=== PATIENT | male | born 1980 | race African-American/Black ===

== ENCOUNTER 2017-03-14 16:45 | Emergency (ER) | payer MEDICAID ==
[~2017-03-14] VITALS: Ht 170.2 cm; Wt 70.0 kg
[~2017-03-14 16:45] MED LIST: ALEN70TA13 PO; ASCO500C6 PO; BACL-141 PO; COLAZAL; DIPH25CA83 PO; DOCU-150 PO; DULO60CA44 PO; DUONEB; ERGO500043 PO; FOLI-43 PO; GABA-531 PO; METF500T4 PO; PROP80CA2 PO; TEMA15CA46 PO
[2017-03-14 17:46] LABS: BASOPHILS % 0.4 % (0.0-2.0); EOSINOPHILS % 1.2 % (0.0-5.0); HEMOGLOBIN. 8.6 g/dL (14.0-18.0); LYMPHOCYTES % 10.1 % (20.0-50.0); MEAN CORPUSCULAR HEMOGLOBIN 27.7 pg (28.0-32.0); MEAN CORPUSCULAR HGB CONC 31.9 g/dL (31.0-37.0); MEAN PLATELET VOLUME 7.9 fl (7.4-10.4); MONOCYTES % 7.6 % (2.0-8.0); NEUTROPHILS % 80.7 % (40.0-76.0); PLATELET 446 x1000/uL (130-400); RED BLOOD CELL COUNT 3.11 mill/uL (4.7-6.1); RED CELL DISTRIBUTION WIDTH 14.5 % (11.6-14.6); WHITE BLOOD COUNT 14.9 x1000/uL (4.5-11.0)
[2017-03-14 17:50] LABS: CHLORIDE 106 mEq/L (98-107)
[2017-03-14 17:51] LABS: INDEX HEMOLYSI 1 (1-3); INDEX ICTERIC 1 (1-4); INDEX LIPEMIC 1 (1-3)
[2017-03-14 17:56] LABS: ALBUMIN 2.5 g/dL (3.4-5.0); ANION GAP 10; CALCIUM 8.6 mg/dL (8.5-10.1); CARBON DIOXIDE 27 mEq/L (21-32); UREA NITROGEN BLOOD 10 mg/dL (7-21)
[2017-03-14 18:00] LABS: ALANINE AMINOTRANSFERASE 12 IU/L (13-61); eGFR 43 mL/min (>60)
[2017-03-14] MEDS ORDERED: SODIUM CHLORIDE 0.9% 1,000 ML IV ONE (19:45)
[2017-03-15 12:58] VITALS: BP 140/76
== END 2017-03-15 13:01 | disposition home or self-care (01) ==
LOC: ER 16:46
DX: E11.649 Type 2 diabetes mellitus with hypoglycemia without coma (principal); T38.3X5A Adverse effect of insulin and oral hypoglycemic [antidiabetic] drugs, initial encounter; Z79.899 Other long term (current) drug therapy; I12.9 Hypertensive chronic kidney disease with stage 1 through stage 4 chronic kidney disease, or unspecified chronic kidney disease; N18.9 Chronic kidney disease, unspecified; E11.29 Type 2 diabetes mellitus with other diabetic kidney complication
CPT/HCPCS: 36415; 80053; 82962; 85025; 96360; 96361; 99285; Z7610; J7030

== ENCOUNTER 2018-02-12 06:32 | Inpatient (IN) | payer MEDICAID ==
[~2018-02-12] VITALS: Ht 167.6 cm; Wt 64.4 kg
[~2018-02-12 06:32] MED LIST changes: -ALEN70TA13 PO; +ALEN70TA46 PO; +ERGO500013 PO; -ERGO500043 PO; -TEMA15CA46 PO; +TEMA15CA5 PO
[2018-02-12] MEDS ORDERED: DEXTROSE 50% WATER 50ML SYRINGE IV ONE ×2 (06:54→07:00)
[2018-02-12] MEDS ORDERED: GLUCAGON,HUMAN RECOMBINANT 1MG/VIAL IM ONE (07:00)
[2018-02-12] MEDS ORDERED: SODIUM CHLORIDE 0.9% 1000ML BAG (SEPSIS BOLUS) IV ONE (07:00)
[2018-02-12 07:28] LABS: BASOPHILS % 0.6 % (0.0-2.0); EOSINOPHILS % 0.1 % (0.0-5.0); HEMATOCRIT. 32.5 % (42.0-52.0); HEMOGLOBIN. 10.5 g/dL (14.0-18.0); LYMPHOCYTES % 15.6 % (20.0-50.0); MEAN CORPUSCULAR HEMOGLOBIN 31.5 pg (28.0-32.0); MEAN CORPUSCULAR VOLUME 97.6 fL (80.0-94.0); MONOCYTES % 2.9 % (2.0-8.0); NEUTROPHILS % 80.8 % (40.0-76.0); PLATELET 268 x1000/uL (130-400); RED BLOOD CELL COUNT 3.33 mill/uL (4.7-6.1); RED CELL DISTRIBUTION WIDTH 14.6 % (11.6-14.6)
[2018-02-12 07:37] LABS: ETHANOL BLOOD 146 mg/dL
[2018-02-12 07:40] LABS: PARTIAL THROMBOPLASTIN TIME 25.7 sec (23.4-31.0); PROTHROMBIN TIME 10.7 sec (9.4-11.6)
[2018-02-12 07:51] LABS: CHLORIDE 104 mEq/L (98-107)
[2018-02-12] MEDS ORDERED: LEVOFLOXACIN 750MG PREMIX 150 ML IV ONE (08:45)
[2018-02-12] MEDS ORDERED: OSELTAMIVIR 75MG CAPSULE PO ONE (08:45)
[2018-02-12] MEDS ORDERED: LIDOCAINE HCL/PF 1% 10 MG/ML 5ML VIAL ONE (14:21)
[2018-02-12] MEDS ORDERED: SODIUM BICARBONATE 4% (2.4MEQ) 5ML VIAL IV ONE (14:22)
[2018-02-12 21:30] VITALS: BP 141/102
[2018-02-12 22:00] VITALS: BP 141/102
[2018-02-12] MEDS ORDERED: DOCUSATE SODIUM 250MG CAPSULE PO PRN (23:15)
[2018-02-12] MEDS ORDERED: ONDANSETRON HCL 4MG/2ML VIAL IV PRN (23:15)
[2018-02-12] MEDS ORDERED: ACETAMINOPHEN 325MG TABLET PO PRN (23:15)
[2018-02-12] MEDS ORDERED: DEXTROSE 50% WATER 50ML SYRINGE IV PRN (23:45)
[2018-02-13] VITALS (12 sets, daily range): BP systolic 112–135; BP diastolic 58–87
[2018-02-13] MEDS: TEMAZEPAM 15MG CAPSULE PO PRN ×2 (00:10→21:05)
[2018-02-13] MEDS: TRAMADOL HCL/ACETAMINOPHEN 37.5/325MG TABLET PO PRN ×3 (00:39→21:06)
[2018-02-13] MEDS ORDERED: SODIUM CHLORIDE 0.9% INJ 3ML FLUSH IVF ONE (06:00)
[2018-02-13] MEDS: GABAPENTIN 300MG CAPSULE PO SCH ×3 (06:27→21:04)
[2018-02-13] MEDS: BACLOFEN 10MG TABLET PO SCH ×3 (06:27→21:04)
[2018-02-13 07:14] LABS: CLARITY URINE CLEAR (CLEAR); COLOR URINE YELLOW (YELLOW); KETONES URINE TRACE (NEGATIVE); LEUKOCYTE ESTERASE URINE NEGATIVE (NEGATIVE); NITRITE URINE NEGATIVE (NEGATIVE); OCCULT BLOOD URINE NEGATIVE (NEGATIVE); PH URINE 5.5 (4.5-8.0); PROTEIN URINE NEGATIVE (NEGATIVE); SPECIFIC GRAVITY URINE 1.023 (1.005-1.030); UROBILINOGEN URINE 0.2 E.U./dL (0.2-1.0)
[2018-02-13] MEDS: BLOOD SUGAR DIAGNOSTIC STRIP TEST SCH ×4 (07:30→21:04)
[2018-02-13] MEDS ORDERED: INSULIN LISPRO 100 UNITS/ML SUBCUT SCH (07:30)
[2018-02-13] MEDS ORDERED: METFORMIN HCL 500MG TABLET PO SCH (08:00)
[2018-02-13 08:07] LABS: *AMPHETAMINES SCREEN URINE NEGATIVE (NEGATIVE)
[2018-02-13 08:08] LABS: *BARBITURATES SCREEN URINE NEGATIVE (NEGATIVE); *BENZODIAZEPINES SCREEN URINE NEGATIVE (NEGATIVE); *COCAINE SCREEN URINE NEGATIVE (NEGATIVE); METHADONE URINE SCREEN NEGATIVE (NEGATIVE); OPIATES URINE SCREEN NEGATIVE (NEGATIVE); PHENCYCLIDINE URINE SCREEN NEGATIVE (NEGATIVE)
[2018-02-13 08:09] LABS: CANNABINOID URINE SCREEN PRESUMTIVE POSITIVE (NEGATIVE)
[2018-02-13 08:48] LABS: BASOPHILS % 0.4 % (0.0-2.0); EOSINOPHILS % 0.9 % (0.0-5.0); HEMATOCRIT. 28.5 % (42.0-52.0); HEMOGLOBIN. 9.5 g/dL (14.0-18.0); LYMPHOCYTES % 23.9 % (20.0-50.0); MEAN CORPUSCULAR HEMOGLOBIN 31.4 pg (28.0-32.0); MEAN CORPUSCULAR VOLUME 94.7 fL (80.0-94.0); MEAN PLATELET VOLUME 9.6 fl (7.4-10.4); NEUTROPHILS % 61.8 % (40.0-76.0); PLATELET 197 x1000/uL (130-400); RED BLOOD CELL COUNT 3.01 mill/uL (4.7-6.1); RED CELL DISTRIBUTION WIDTH 14.7 % (11.6-14.6)
[2018-02-13] MEDS ORDERED: NON FORMULARY PATIENT HOME MED EA PO SCH (09:00)
[2018-02-13 09:23] LABS: CHLORIDE 100 mEq/L (98-107)
[2018-02-13] MEDS: PROPRANOLOL HCL 20MG TABLET PO SCH ×2 (09:27→20:51)
[2018-02-13] MEDS: ASCORBIC ACID 500 MG TABLET PO SCH (09:28)
[2018-02-13] MEDS: DULOXETINE HCL 60MG DR CAPSULE PO SCH (09:28)
[2018-02-13] MEDS: FOLIC ACID 1MG TABLET PO SCH (09:28)
[2018-02-13] MEDS: INSULIN LISPRO (LOW DOSE) 100 UNITS/ML SUBCUT SCH ×3 (09:29→18:31)
[2018-02-13 09:30] LABS: LDL CHOLESTEROL 48 mg/dL (5-100)
[2018-02-13 09:31] LABS: HDL CHOLESTEROL 68 mg/dL (40-59); TOTAL IRON BINDING CAPACITY 310 ug/dL (250-450)
[2018-02-13 09:34] LABS: T4 FREE 0.83 ng/dL (0.76-1.46)
[2018-02-13] MEDS: DIPHENHYDRAMINE 50MG/ML VIAL IV PRN ×4 (12:13→21:40)
[2018-02-13] MEDS ORDERED: METHYL SALICYLATE/MENTHOL CREAM 85GM TOP PRN (23:00)
[2018-02-14] VITALS (12 sets, daily range): BP systolic 109–156; BP diastolic 77–114
[2018-02-14] MEDS: TRAMADOL HCL/ACETAMINOPHEN 37.5/325MG TABLET PO PRN ×4 (02:35→21:05)
[2018-02-14] MEDS: DIPHENHYDRAMINE 50MG/ML VIAL IV PRN ×4 (02:43→21:06)
[2018-02-14] MEDS: BACLOFEN 10MG TABLET PO SCH ×3 (06:02→21:01)
[2018-02-14] MEDS: GABAPENTIN 300MG CAPSULE PO SCH ×3 (06:03→21:01)
[2018-02-14] MEDS: BLOOD SUGAR DIAGNOSTIC STRIP TEST SCH ×4 (06:53→20:56)
[2018-02-14] MEDS: INSULIN LISPRO (LOW DOSE) 100 UNITS/ML SUBCUT SCH ×3 (07:20→17:54)
[2018-02-14] MEDS: PROPRANOLOL HCL 20MG TABLET PO SCH ×2 (08:59→21:01)
[2018-02-14] MEDS: ASCORBIC ACID 500 MG TABLET PO SCH (09:00)
[2018-02-14] MEDS: DULOXETINE HCL 60MG DR CAPSULE PO SCH (09:00)
[2018-02-14] MEDS: FOLIC ACID 1MG TABLET PO SCH (09:00)
[2018-02-14] MEDS: LINAGLIPTIN 5MG TABLET PO SCH (12:43)
[2018-02-14 16:43] LABS: BASOPHILS % 0.5 % (0.0-2.0); EOSINOPHILS % 2.9 % (0.0-5.0); HEMATOCRIT. 37.9 % (42.0-52.0); HEMOGLOBIN. 12.4 g/dL (14.0-18.0); LYMPHOCYTES % 28.3 % (20.0-50.0); MEAN CORPUSCULAR HEMOGLOBIN 31.1 pg (28.0-32.0); MEAN PLATELET VOLUME 9.6 fl (7.4-10.4); MONOCYTES % 9.1 % (2.0-8.0); NEUTROPHILS % 59.2 % (40.0-76.0); PLATELET 234 x1000/uL (130-400); RED BLOOD CELL COUNT 3.99 mill/uL (4.7-6.1); RED CELL DISTRIBUTION WIDTH 14.8 % (11.6-14.6)
[2018-02-14 16:51] LABS: CHLORIDE 99 mEq/L (98-107)
[2018-02-14] MEDS: TEMAZEPAM 15MG CAPSULE PO PRN (21:04)
[2018-02-15] VITALS (14 sets, daily range): BP systolic 114–150; BP diastolic 62–106
[2018-02-15] MEDS: DIPHENHYDRAMINE 50MG/ML VIAL IV PRN ×4 (04:59→21:51)
[2018-02-15] MEDS: BACLOFEN 10MG TABLET PO SCH ×3 (05:04→21:44)
[2018-02-15] MEDS: GABAPENTIN 300MG CAPSULE PO SCH ×3 (05:04→21:44)
[2018-02-15 06:51] LABS: BASOPHILS % 0.7 % (0.0-2.0); EOSINOPHILS % 2.8 % (0.0-5.0); HEMATOCRIT. 35.4 % (42.0-52.0); HEMOGLOBIN. 11.7 g/dL (14.0-18.0); LYMPHOCYTES % 36.7 % (20.0-50.0); MEAN CORPUSCULAR HEMOGLOBIN 31.5 pg (28.0-32.0); MEAN CORPUSCULAR VOLUME 95.3 fL (80.0-94.0); MEAN PLATELET VOLUME 9.8 fl (7.4-10.4); MONOCYTES % 8.8 % (2.0-8.0); PLATELET 205 x1000/uL (130-400); RED BLOOD CELL COUNT 3.72 mill/uL (4.7-6.1); RED CELL DISTRIBUTION WIDTH 14.7 % (11.6-14.6)
[2018-02-15] MEDS: BLOOD SUGAR DIAGNOSTIC STRIP TEST SCH ×4 (07:30→21:57)
[2018-02-15 08:40] LABS: CHLORIDE 97 mEq/L (98-107)
[2018-02-15] MEDS: INSULIN LISPRO (LOW DOSE) 100 UNITS/ML SUBCUT SCH ×3 (09:10→18:21)
[2018-02-15] MEDS: DULOXETINE HCL 60MG DR CAPSULE PO SCH (09:17)
[2018-02-15] MEDS: FOLIC ACID 1MG TABLET PO SCH (09:17)
[2018-02-15] MEDS: PROPRANOLOL HCL 20MG TABLET PO SCH ×2 (09:18→21:45)
[2018-02-15] MEDS: ASCORBIC ACID 500 MG TABLET PO SCH (09:19)
[2018-02-15] MEDS: LINAGLIPTIN 5MG TABLET PO SCH (09:19)
[2018-02-15] MEDS: TRAMADOL HCL/ACETAMINOPHEN 37.5/325MG TABLET PO PRN ×2 (09:25→21:50)
[2018-02-15] MEDS: TEMAZEPAM 15MG CAPSULE PO PRN (21:47)
[2018-02-16] VITALS (12 sets, daily range): BP systolic 107–136; BP diastolic 58–97
[2018-02-16] MEDS: BACLOFEN 10MG TABLET PO SCH ×3 (05:41→21:28)
[2018-02-16] MEDS: DIPHENHYDRAMINE 50MG/ML VIAL IV PRN ×3 (05:41→21:35)
[2018-02-16] MEDS: GABAPENTIN 300MG CAPSULE PO SCH ×3 (05:41→21:28)
[2018-02-16] MEDS: ASCORBIC ACID 500 MG TABLET PO SCH (08:04)
[2018-02-16] MEDS: BLOOD SUGAR DIAGNOSTIC STRIP TEST SCH ×4 (08:04→21:38)
[2018-02-16] MEDS: DULOXETINE HCL 60MG DR CAPSULE PO SCH (08:04)
[2018-02-16] MEDS: LINAGLIPTIN 5MG TABLET PO SCH (08:07)
[2018-02-16] MEDS: PROPRANOLOL HCL 20MG TABLET PO SCH ×2 (08:07→21:28)
[2018-02-16] MEDS: FOLIC ACID 1MG TABLET PO SCH (08:07)
[2018-02-16] MEDS: INSULIN LISPRO (LOW DOSE) 100 UNITS/ML SUBCUT SCH ×3 (08:08→18:22)
[2018-02-16] MEDS: TRAMADOL HCL/ACETAMINOPHEN 37.5/325MG TABLET PO PRN ×2 (08:21→21:34)
[2018-02-16] MEDS: TEMAZEPAM 15MG CAPSULE PO PRN (21:29)
[2018-02-16] MEDS: INSULIN GLARGINE UD 100 UNITS/ML SYR SUBCUT SCH (21:42)
[2018-02-17] VITALS (12 sets, daily range): BP systolic 107–133; BP diastolic 69–95
[2018-02-17] MEDS: DIPHENHYDRAMINE 50MG/ML VIAL IV PRN ×4 (04:33→22:01)
[2018-02-17] MEDS: BACLOFEN 10MG TABLET PO SCH ×3 (05:00→21:00)
[2018-02-17] MEDS: GABAPENTIN 300MG CAPSULE PO SCH ×3 (05:00→20:58)
[2018-02-17 07:29] LABS: BASOPHILS % 0.6 % (0.0-2.0); EOSINOPHILS % 2.3 % (0.0-5.0); HEMATOCRIT. 30.2 % (42.0-52.0); HEMOGLOBIN. 9.9 g/dL (14.0-18.0); LYMPHOCYTES % 34.8 % (20.0-50.0); MEAN CORPUSCULAR HEMOGLOBIN 31.2 pg (28.0-32.0); MEAN CORPUSCULAR VOLUME 95.4 fL (80.0-94.0); MEAN PLATELET VOLUME 9.7 fl (7.4-10.4); MONOCYTES % 10.5 % (2.0-8.0); NEUTROPHILS % 51.8 % (40.0-76.0); PLATELET 176 x1000/uL (130-400); RED BLOOD CELL COUNT 3.17 mill/uL (4.7-6.1); RED CELL DISTRIBUTION WIDTH 14.5 % (11.6-14.6)
[2018-02-17 07:50] LABS: CHLORIDE 100 mEq/L (98-107)
[2018-02-17] MEDS: BLOOD SUGAR DIAGNOSTIC STRIP TEST SCH ×4 (08:10→21:00)
[2018-02-17] MEDS: PROPRANOLOL HCL 20MG TABLET PO SCH ×2 (08:18→20:58)
[2018-02-17] MEDS: ASCORBIC ACID 500 MG TABLET PO SCH (08:18)
[2018-02-17] MEDS: FOLIC ACID 1MG TABLET PO SCH (08:18)
[2018-02-17] MEDS: DULOXETINE HCL 60MG DR CAPSULE PO SCH (08:18)
[2018-02-17] MEDS: INSULIN LISPRO (LOW DOSE) 100 UNITS/ML SUBCUT SCH ×3 (08:19→18:33)
[2018-02-17] MEDS: TRAMADOL HCL/ACETAMINOPHEN 37.5/325MG TABLET PO PRN ×2 (13:00→22:52)
[2018-02-17 14:33] LABS: TOTAL IRON BINDING CAPACITY 323 ug/dL (250-450)
[2018-02-17] MEDS ORDERED: INSULIN GLARGINE UD 100 UNITS/ML SYR SUBCUT SCH (22:00)
[2018-02-17] MEDS: TEMAZEPAM 15MG CAPSULE PO PRN (22:01)
[2018-02-17] MEDS: INSULIN GLARGINE UD 100 UNITS/ML SYR SUBCUT SCH (22:04)
[2018-02-18] VITALS (9 sets, daily range): BP systolic 108–144; BP diastolic 63–87
[2018-02-18] MEDS: GABAPENTIN 300MG CAPSULE PO SCH ×2 (04:36→13:15)
[2018-02-18] MEDS: DIPHENHYDRAMINE 50MG/ML VIAL IV PRN ×2 (04:36→11:39)
[2018-02-18] MEDS: BACLOFEN 10MG TABLET PO SCH ×2 (04:36→13:15)
[2018-02-18 05:56] LABS: BASOPHILS % 0.4 % (0.0-2.0); EOSINOPHILS % 1.9 % (0.0-5.0); HEMATOCRIT. 30.1 % (42.0-52.0); HEMOGLOBIN. 9.8 g/dL (14.0-18.0); LYMPHOCYTES % 35.6 % (20.0-50.0); MEAN CORPUSCULAR HEMOGLOBIN 31.4 pg (28.0-32.0); MEAN CORPUSCULAR VOLUME 96.3 fL (80.0-94.0); MONOCYTES % 10.7 % (2.0-8.0); NEUTROPHILS % 51.4 % (40.0-76.0); PLATELET 163 x1000/uL (130-400); RED BLOOD CELL COUNT 3.13 mill/uL (4.7-6.1); RED CELL DISTRIBUTION WIDTH 14.4 % (11.6-14.6)
[2018-02-18 06:16] LABS: CHLORIDE 100 mEq/L (98-107)
[2018-02-18] MEDS: BLOOD SUGAR DIAGNOSTIC STRIP TEST SCH ×2 (07:30→11:42)
[2018-02-18 09:06] LABS: FOLICLE STIMULATING HORMONE 2.4 mIU/mL (1.5-12.4); LUTEINIZING HORMONE 8.9 mIU/mL (1.7-8.6); PROLACTIN 10.5 ng/mL (4.0-15.2)
[2018-02-18] MEDS: DULOXETINE HCL 60MG DR CAPSULE PO SCH (09:25)
[2018-02-18] MEDS: ASCORBIC ACID 500 MG TABLET PO SCH (09:25)
[2018-02-18] MEDS: FOLIC ACID 1MG TABLET PO SCH (09:25)
[2018-02-18] MEDS: INSULIN LISPRO (LOW DOSE) 100 UNITS/ML SUBCUT SCH ×2 (09:27→11:42)
[2018-02-18] MEDS: PROPRANOLOL HCL 20MG TABLET PO SCH (09:37)
[2018-02-18 13:08] LABS: *CREATININE RANDOM URINE 84.3 mg/dL (Not Estab.); MICROALBUMIN RANDOM URINE 55.7 ug/mL (Not Estab.)
[2018-02-19 13:09] LABS: TESTOSTERONE FREE 10.7 pg/mL (8.7-25.1)
== END 2018-02-18 20:30 | DRG 349 ==
LOC: ER 06:32 → 5EST 09:45 → EDBEDREQSVC 12:04 → ENRESERV 18:11 → 5EST 02-13 07:48
PROVIDERS: ADMIT Internal Medicine; ATTEND Internal Medicine
PROC: B548ZZA Ultrasonography of Superior Vena Cava, Guidance (ICD-10-PCS; principal; 2018-02-12)
PROC: 02HV33Z Insertion of Infusion Device into Superior Vena Cava, Percutaneous Approach (ICD-10-PCS; 2018-02-12)
PROC: B5181ZA Fluoroscopy of Superior Vena Cava using Low Osmolar Contrast, Guidance (ICD-10-PCS; 2018-02-12)
DX: T87.89 Other complications of amputation stump (principal); R65.21 Severe sepsis with septic shock; A41.9 Sepsis, unspecified organism; N17.9 Acute kidney failure, unspecified; E10.22 Type 1 diabetes mellitus with diabetic chronic kidney disease; E10.42 Type 1 diabetes mellitus with diabetic polyneuropathy; K86.1 Other chronic pancreatitis; M86.9 Osteomyelitis, unspecified; I12.9 Hypertensive chronic kidney disease with stage 1 through stage 4 chronic kidney disease, or unspecified chronic kidney disease; D50.9 Iron deficiency anemia, unspecified; F19.90 Other psychoactive substance use, unspecified, uncomplicated; D64.9 Anemia, unspecified; Y83.8 Other surgical procedures as the cause of abnormal reaction of the patient, or of later complication, without mention of misadventure at the time of the procedure; E07.81 Sick-euthyroid syndrome; N18.9 Chronic kidney disease, unspecified; E10.649 Type 1 diabetes mellitus with hypoglycemia without coma; E10.65 Type 1 diabetes mellitus with hyperglycemia; E10.69 Type 1 diabetes mellitus with other specified complication; N39.0 Urinary tract infection, site not specified; Y90.6 Blood alcohol level of 120-199 mg/100 ml; Z79.4 Long term (current) use of insulin; Z86.73 Personal history of transient ischemic attack (TIA), and cerebral infarction without residual deficits; Z89.511 Acquired absence of right leg below knee; Z89.611 Acquired absence of right leg above knee; Z79.84 Long term (current) use of oral hypoglycemic drugs; Z79.899 Other long term (current) drug therapy
CPT/HCPCS: 36415; 36569; 71045; 76770; 76937; 77001; 80048; 80053; 80061; 80076; 80305; 81003; 82024; 82043; 82533; 82570; 82962; 83001; 83002; 83036; 83519; 83540; 83550; 83605; 83690; 83735; 84146; 84402; 84403; 84439; 84443; 84480; 84481; 84484; 84550; 84681; 85025; 85610; 85651; 85730; 86850; 86900; 87040; 87086; 87804; 93005; 96361; 96365; 96375; 97162; 97166; 97535; 99291; C1725; G0482; J1200; J1610; J1815; J1956; J3490; J7030; J7040; J7050

== ENCOUNTER 2019-06-14 22:05 | Emergency (ER) | payer MEDICAID ==
[~2019-06-14] VITALS: Ht 175.3 cm; Wt 61.0 kg
[~2019-06-14 22:05] MED LIST changes: -ALEN70TA46 PO; -BACL-141 PO; -ERGO500013 PO; +MELA3TAB71 PO; +METF-414 PO; -METF500T4 PO; +PROP20TA7 PO; -PROP80CA2 PO
[2019-06-15] MEDS ORDERED: KETOROLAC 30MG/ML VIAL IV STA (00:36)
[2019-06-15 01:10] LABS: BASOPHILS % 0.4 % (0.0-2.0); EOSINOPHILS % 0.8 % (0.0-5.0); HEMATOCRIT. 31.6 % (42.0-52.0); HEMOGLOBIN. 10.8 g/dL (14.0-18.0); LYMPHOCYTES % 19.4 % (20.0-50.0); MEAN CORPUSCULAR HEMOGLOBIN 35.8 pg (28.0-32.0); MEAN CORPUSCULAR VOLUME 104.1 fL (80.0-94.0); MEAN PLATELET VOLUME 8.9 fl (7.4-10.4); MONOCYTES % 6.2 % (2.0-8.0); NEUTROPHILS % 73.2 % (40.0-76.0); PLATELET 130 x1000/uL (130-400); RED BLOOD CELL COUNT 3.03 mill/uL (4.7-6.1); RED CELL DISTRIBUTION WIDTH 12.3 % (11.6-14.6)
[2019-06-15 01:12] LABS: CHLORIDE 100 mEq/L (98-107)
[2019-06-15 01:15] LABS: ETHANOL BLOOD 260 mg/dL
[2019-06-15] MEDS ORDERED: MORPHINE SULFATE 4 MG/ML CPJ (NOT FOR IM USE) IV NR (01:29)
[2019-06-15] MEDS ORDERED: SODIUM CHLORIDE 0.9% 1,000 ML IV ONE (01:37)
[2019-06-15 07:23] VITALS: BP 112/79
== END 2019-06-15 08:52 | disposition home or self-care (01) ==
LOC: ER 22:05
DX: S42.291A Other displaced fracture of upper end of right humerus, initial encounter for closed fracture (principal); F10.129 Alcohol abuse with intoxication, unspecified; E11.9 Type 2 diabetes mellitus without complications; I10 Essential (primary) hypertension; G40.909 Epilepsy, unspecified, not intractable, without status epilepticus; Y90.8 Blood alcohol level of 240 mg/100 ml or more; Z79.84 Long term (current) use of oral hypoglycemic drugs; W01.0XXA Fall on same level from slipping, tripping and stumbling without subsequent striking against object, initial encounter; Y93.89 Activity, other specified; Y92.018 Other place in single-family (private) house as the place of occurrence of the external cause
CPT/HCPCS: 29105; 36415; 73030; 73060; 80048; 80320; 85025; 96374; 96375; 99284; J1885; J2270; J7030; G0480